=== PATIENT | male | born 1955 | race Caucasian/White ===

== ENCOUNTER → 2018-01-17 | Outpatient (CLI) | payer OTHER ==
[2017-01-13 16:02] VITALS: BMI 23.9
[~2018-01-17] MED LIST: ASPI-1471 PO; ASPI-757 PO; CALC-18 PO; DOC100 PO; HUMALOG; LANI SQ; OXYC-373 PO; PER PO
--- NOTE | 2018-01-19 16:49 | RADIOLOGY IMAGING REPORT ---
FACILITY: [facility] [place] PATIENT NAME: Lj Paredes : 1955 MR: [id number] V: [id number] EXAM DATE: ORDERING PHYSICIAN: YRLEE REDMAN TECHNOLOGIST: Location: [facility] [place] Patient: Lj Paredes : 1955 Visit/Account:[id number] Date of Sevice: 01/17/2018 CHEST W/O CONTRAST History: Lung nodule, six-month follow-up TECHNIQUE: Contiguous axial images were performed through the chest to the level of the adrenal gla nds. No IV contrast was administered. Coronal and sagittal reformatting was also performed. Dose Lowe ring Technique One of the following dose optimization techniques was utilized in the performance of this exam: Autom ated exposure control; adjustment of the mA and/or kV according to the patient's size; or use of an i terative reconstruction technique. Specific details can be referenced in the facility's radiology C T exam operational policy. COMPARISON STUDIES: Outside CT May 28, 2017.. And CT of the chest August 12, 2011 Lungs / Pleura: Again noted is a biapical pleural thickening and fibrotic change. The 7 mm nodular area in the medial right pulmonary apex has remained stable compared to the outside study from 2016. This appeared to been faintly present on the prior CT from 2010 although not as well del ineated due to the difference in slice thickness. Subtle peribronchial thickening appears similar to the prior study. No focal infiltrates are identified. Mediastinum/nodes: negative. Heart and vessels: Extensive coronary artery vascular calcifications are present Musculoskeletal / Body wall: There Is a gentle dextroconvex scoliosis of the thoracic spine. Incomp letely imaged is a right shoulder arthroplasty Upper abdomen: Visualized abdominal viscera negative. IMPRESSION: 7 mm nodular area medial right pulmonary apex has been stable when compared the prior study from 2016. This appears to be faintly visible on the prior CT from 2010 although not as well delin eated due to the difference in slice thickness. The Fleischner Society recommendations are as follow s. Subtle peribronchial thickening appears similar to the prior study Extensive coronary artery vascular calcifications Report Dictated By: Rolanda Escobar MD at 01/17/2018 4:10 PM Report E-Signed By: Rolanda Escobar MD at 01/19/2018 4:46 PM COCON:[id number]
== END ==
LOC: CT 01:29
PROVIDERS: ATTEND Family Medicine
DX: I25.10 Atherosclerotic heart disease of native coronary artery without angina pectoris (principal); R91.8 Other nonspecific abnormal finding of lung field
CPT/HCPCS: 71250

== ENCOUNTER → 2018-09-19 | Outpatient (CLI) | payer OTHER ==
[2017-01-13 16:02] VITALS: BMI 23.9
[2018-09-19 13:09] LABS: LDL CHOLESTEROL 114 mg/dl
== END ==
LOC: LAB 12:26
PROVIDERS: ATTEND Internal Medicine Endocrinology, Diabetes & Metabolism
DX: E10.9 Type 1 diabetes mellitus without complications (principal)
CPT/HCPCS: 36415; 82040; 82043; 82247; 82310; 82374; 82435; 82465; 82565; 82570; 82947; 83036; 83718; 84075; 84132; 84155; 84295; 84450; 84460; 84478; 84520

== ENCOUNTER → 2018-10-25 | Outpatient (REF) | payer OTHER ==
[2017-01-13 16:02] VITALS: BMI 23.9
[2018-10-25 16:53] LABS: PLATELET COUNT, AUTOMATED 262 K/uL (150-450)
== END ==
LOC: ZZSENDIN 16:38
PROVIDERS: ATTEND Family Medicine
DX: R53.83 Other fatigue (principal)
CPT/HCPCS: 82040; 82247; 82310; 82374; 82435; 82565; 82607; 82947; 84075; 84132; 84155; 84295; 84450; 84460; 84520; 85025

== ENCOUNTER → 2019-03-31 | Outpatient (CLI) | payer OTHER ==
[2017-01-13 16:02] VITALS: BMI 23.9
== END ==
LOC: LAB 14:19
PROVIDERS: ATTEND Internal Medicine Endocrinology, Diabetes & Metabolism
DX: E10.9 Type 1 diabetes mellitus without complications (principal); E78.5 Hyperlipidemia, unspecified
CPT/HCPCS: 36415; 82043; 82310; 82374; 82435; 82565; 82947; 83036; 84132; 84295; 84520